=== PATIENT | male | born 1965 | race Caucasian/White ===

== ENCOUNTER 2024-12-22 11:15 | Outpatient (AMB) | payer OTHER, SELFPAY | END 2024-12-22 11:22 | disposition home or self-care (01) | PROVIDERS: PCP Internal Medicine; Visit Provider Registered Nurse Emergency | DX: J30.89 Other allergic rhinitis (principal) | CPT/HCPCS: 95117; 95165 ==

== ENCOUNTER 2025-02-21 10:34 | Outpatient (AMB) | payer BC, SELFPAY | END 2025-02-21 10:35 | disposition home or self-care (01) | LOC: HO.HMGAL 10:34 | PROVIDERS: PCP Student in an Organized Health Care Education/Training Program; Visit Provider Registered Nurse Emergency | DX: J30.89 Other allergic rhinitis (principal) | CPT/HCPCS: 95117; 95165 ==

== ENCOUNTER 2025-04-06 10:42 | Outpatient (AMB) | payer BC, SELFPAY | END 2025-04-06 10:42 | disposition home or self-care (01) | LOC: HO.HMGAL 10:42 | PROVIDERS: PCP Student in an Organized Health Care Education/Training Program; Visit Provider Registered Nurse Emergency | DX: J30.89 Other allergic rhinitis (principal) | CPT/HCPCS: 95117; 95165 ==